=== PATIENT | female | born 1945 | race Caucasian/White ===

== ENCOUNTER → 2017-10-06 | Outpatient (CLI) | payer OTHER, MEDICARE ==
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
== END | disposition home or self-care (01) ==
LOC: PMG 11:03
PROVIDERS: ATTEND Nurse Practitioner Family
DX: M19.011 Primary osteoarthritis, right shoulder (principal); M19.012 Primary osteoarthritis, left shoulder
CPT/HCPCS: 73030

== ENCOUNTER 2017-12-23 17:33 | Inpatient (IN) | payer MEDICARE, OTHER ==
[~2017-12-23] VITALS: Ht 147.3 cm; Wt 59.2 kg
--- NOTE | 2017-12-23 17:47 | EKG ---
[address] [address] Test Date: 2017-12-23 Test Time: 17:39:46 Pat Name: BK COOPER Department: Room: Gender: F Executive Business Coach: DIEGO : 1945 Requested By: JEVON KUNZ Order Number: [id number] Reading MD: Measurements Intervals [place] Rate: 85 P: 50 MS: 216 QRS: 34 QRSD: 76 T: 27 QT: 364 QTc: 439 Interpretive Statements SINUS RHYTHM PROLONGED MS INTERVAL ABNORMAL ECG RI6.01 No previous ECG available for comparison
--- NOTE | 2017-12-23 17:55 | RAD ---
CHEST AP ONLY History: CHEST HEAVINESS, PT HAD RIGHT SIDE ROTATOR CUFF SURGERY THIS MORNING, UNABLE TO REMOVE THE SLING Comparison: None. Findings: Single view of the chest is submitted. There is now elevation of the right hemidiaphragm although subpulmonic effusion not excluded. There is right base atelectasis or infiltrate. Cardiac silhouette is probably unchanged. There is no pneumothorax. Impression: 1. There is now evaluation of the right hemidiaphragm although subpulmonic effusion not excluded. There is right base atelectasis/infiltrate. Component of right lower lobe collapse is a possibility. Electronically signed by: Greg Lopez MD (12/23/2017 5:52 PM) [facility]
[2017-12-23 18:10] LABS: BASO # 0.1 x10^3/uL (0.0-0.2); BASO % 1 % (0-3); EOS % 0 % (0-3); HEMATOCRIT 42.3 % (36.0-47.0); HEMOGLOBIN 14.4 g/dL (12.0-15.5); LYMPH # 1.1 x10^3/uL (1.0-4.8); LYMPH % 10 % (24-48); MEAN CORPUSCULAR HEMOGLOBIN 31 pg (25-35); MEAN CORPUSCULAR HGB CONC 34 g/dL (31-37); MEAN CORPUSCULAR VOLUME 90 fL (79-100); MONO # 0.4 x10^3/uL (0.0-1.1); MONO % 4 % (0-9); NEUT # 9.4 x10^3uL (1.8-7.7); NEUT % 85 % (31-73); PLATELET COUNT 300 x10^3/uL (140-400); RED BLOOD COUNT 4.69 x10^6/uL (3.50-5.40); RED CELL DISTRIBUTION WIDTH 13.2 % (11.5-14.5)
[2017-12-23 18:24] LABS: ALBUMIN 3.8 g/dL (3.4-5.0); ALK PHOS 87 U/L (46-116); ALT (SGPT) 36 U/L (14-59); ANION GAP 11 (6-14); AST (SGOT) 29 U/L (15-37); BLOOD UREA NITROGEN 17 mg/dL (7-20); CALCIUM 9.2 mg/dL (8.5-10.1); CARBON DIOXIDE 25 mmol/L (21-32); CHLORIDE 103 mmol/L (98-107); CREATININE 0.9 mg/dL (0.6-1.0); GFR 61.5; GLUCOSE 126 mg/dL (70-99); LIPASE 241 U/L (73-393); POTASSIUM 4.6 mmol/L (3.5-5.1); SODIUM 139 mmol/L (136-145); TOTAL BILIRUBIN 0.3 mg/dL (0.2-1.0); TOTAL PROTEIN 7.7 g/dL (6.4-8.2)
[2017-12-23 18:25] LABS: DIRECT BILIRUBIN < 0.1 mg/dL (0.0-0.2)
--- NOTE | 2017-12-23 18:28 | PHYS DOC ---
Past History Past Medical History: Diabetes Alcohol Use: None Drug Use: None Adult General Chief Complaint Chief Complaint: POST-OP PROBLEM HPI HPI Patient is a 72 year old female who presents with complaint of chest heaviness. The patient states that she started getting heaviness in her chest at approximately 1500 today. The patient had rotator cuff surgery earlier this morning with Dr. Jo at [facility]. Patient states that she had been recovering well. Patient was having pain in her right shoulder and took hydrocodone shortly prior to onset of symptoms. Patient notes as well that she has been dizzy since sitting up which does improve with lying down. Patient denies history of hypertension, hyperlipidemia. Patient states that she is "prediabetic" but not on medication. Patient denies any history of smoking and denies any family history of coronary artery disease. The patient states currently her symptoms have resolved and she feels much better. The patient had called Dr. Mcallister who was on-call for Dr. Jo, and he instructed the patient come to the emergency department to be evaluated. Review of Systems Review of Systems Constitutional: Denies fever or chills [] Eyes: Denies change in visual acuity, redness, or eye pain [] HENT: Denies nasal congestion or sore throat [] Respiratory: Denies cough or shortness of breath [] Cardiovascular: Chest pressure, denies edema[] GI: Denies abdominal pain, nausea, vomiting, bloody stools or diarrhea [] : Denies dysuria or hematuria [] Musculoskeletal: Right shoulder pain[] Integument: Denies rash or skin lesions [] Neurologic: Denies headache, focal weakness or sensory changes [] All other systems were reviewed and found to be within normal limits, except as documented in this note. Allergies Allergies Allergies Coded Allergies Type Severity Reaction Last Updated Verified codeine Allergy Unknown 12/23/17 Yes morphine Allergy Unknown 12/23/17 Yes Physical Exam Physical Exam Constitutional: Alert, afebrile, no acute distress. [] HENT: Normocephalic, atraumatic, bilateral external ears normal, oropharynx moist, no oral exudates, nose normal. [] Eyes: PERRLA, EOMI, conjunctiva normal, no discharge. [] Neck: Normal range of motion, no tenderness, supple, no stridor. [] Cardiovascular:Heart rate regular rhythm, no murmur [] Lungs & Thorax: Bilateral breath sounds clear to auscultation [] Abdomen: Bowel sounds normal, soft, no tenderness, no masses, no pulsatile masses. [] Skin: Warm, dry, no erythema, no rash. [] Back: No tenderness, no CVA tenderness. [] Extremities: Patient currently in right rotator cuff sling with dressing on right shoulder clean, dry, and intact, no cyanosis, no clubbing, no edema. [] Neurologic: Alert and oriented X 3, normal motor function, normal sensory function, no focal deficits noted. [] Current Patient Data Vital Signs Vital Signs Date Time Temp Pulse Resp B/P (MAP) Pulse Ox O2 Delivery O2 Flow Rate FiO2 12/23/17 17:57 87 18 98 Room Air Lab Results Laboratory Tests Test 12/23/17 17:57 White Blood Count 11.0 x10^3/uL (4.0-11.0) Red Blood Count 4.69 x10^6/uL (3.50-5.40) Hemoglobin 14.4 g/dL (12.0-15.5) Hematocrit 42.3 % (36.0-47.0) Mean Corpuscular Volume 90 fL (79-100) Mean Corpuscular Hemoglobin 31 pg (25-35) Mean Corpuscular Hemoglobin Concent 34 g/dL (31-37) Red Cell Distribution Width 13.2 % (11.5-14.5) Platelet Count 300 x10^3/uL (140-400) Neutrophils (%) (Auto) 85 % (31-73) H Lymphocytes (%) (Auto) 10 % (24-48) L Monocytes (%) (Auto) 4 % (0-9) Eosinophils (%) (Auto) 0 % (0-3) Basophils (%) (Auto) 1 % (0-3) Neutrophils # (Auto) 9.4 x10^3uL (1.8-7.7) H Lymphocytes # (Auto) 1.1 x10^3/uL (1.0-4.8) Monocytes # (Auto) 0.4 x10^3/uL (0.0-1.1) Eosinophils # (Auto) 0.0 x10^3/uL (0.0-0.7) Basophils # (Auto) 0.1 x10^3/uL (0.0-0.2) EKG EKG Interpreted by me: Heart rate 85, sinus rhythm, prolonged [place] interval, normal axis, no acute ST/T-wave abnormalities present[] Radiology/Procedures Radiology/Procedures [address] [address] IMAGING REPORT Signed PATIENT: BK COOPER ACCOUNT: [id number] : 1945 LOCATION: ER AGE: 72 SEX: F EXAM STATUS: REG ER ORD. PHYSICIAN: JEVON KUNZ MD REASON: chest pain PROCEDURE: CHEST AP ONLY CHEST AP ONLY History: CHEST HEAVINESS, PT HAD RIGHT SIDE ROTATOR CUFF SURGERY THIS MORNING, UNABLE TO REMOVE THE SLING Comparison: None. Findings: Single view of the chest is submitted. There is now elevation of the right hemidiaphragm although subpulmonic effusion not excluded. There is right base atelectasis or infiltrate. Cardiac silhouette is probably unchanged. There is no pneumothorax. Impression: 1. There is now evaluation of the right hemidiaphragm although subpulmonic effusion not excluded. There is right base atelectasis/infiltrate. Component of right lower lobe collapse is a possibility. Electronically signed by: Lissette Hogan MD (12/23/2017 5:52 PM) [facility] DICTATED AND SIGNED BY: LISSETTE HOGAN MD DATE: 12/23/171750 CC: JEVON KUNZ MD; SUSANNAH MALLOY PA ~ [address] [address] IMAGING REPORT Signed PATIENT: BK COOPER ACCOUNT: [id number] : 1945 LOCATION: ER AGE: 72 SEX: F EXAM STATUS: REG ER ORD. PHYSICIAN: ZAY PHILLIPS MD REASON: repeat to confirm initial findings of elevated hemidiaphragm PROCEDURE: PORTABLE CHEST 1V PORTABLE CHEST 1V History: Elevated hemidiaphragm Comparison: Exam the same day Findings: Single view of the chest is submitted. There is again apparent elevation right hemidiaphragm although subpulmonic effusion difficult to exclude. There is again some opacity right lung base. Findings were not present on 2006 radiograph. No pneumothorax identified. Heart size is stable. Impression: 1. As seen on exam earlier the same day, there is elevation of the right hemidiaphragm, subpulmonic effusion not excluded. There is also some opacity at the medial right lung base. Electronically signed by: Lissette Hogan MD (12/23/2017 7:33 PM) [facility] DICTATED AND SIGNED BY: LISSETTE HOGAN MD DATE: 12/23/171930 CC: ZAY PHILLIPS MD; SUSANNAH [place] ~ [place] [address] IMAGING REPORT Signed PATIENT: BK COOPER ACCOUNT: [id number] : 1945 LOCATION: ER AGE: 72 SEX: F EXAM STATUS: REG ER ORD. PHYSICIAN: ZAY PHILLIPS MD REASON: left flank pain PROCEDURE: CT ABD PELV W/ IV CONTRST ONLY CT abdomen and pelvis with contrast History: Left flank and abdominal pain, rotator cuff repair this a.m. Technique: After the administration of intravenous contrast, CT imaging was performed of the abdomen and pelvis. No oral contrast was given as per request. Multiplanar images are reviewed. Exposure: One or more of the following individualized dose reduction techniques were utilized for this examination: 1. Automated exposure control 2. Adjustment of the mA and/or kV according to patient size 3. Use of iterative reconstruction technique. Contrast: 75 cc Omnipaque 300 Comparison: March 10, 2008 Findings: There is some motion. There is fairly prominent infiltrate of visualized right lower lobe near the lung base. There are some small foci of gas in the visualized right anterior chest wall probably related to recent surgery. There is no significant abnormality of the liver, spleen, pancreas, adrenal glands. Both kidneys enhance, mild pelviectasis. Gallbladder is present without obvious intraluminal abnormality by CT. There is elevation right hemidiaphragm. Accurate evaluation of bowel is limited without oral contrast. There is no significant inflammatory change adjacent to the bowel. There is no evidence of bowel obstruction, free fluid, or free air. Appendix cannot be confidently identified if still present. There is mild sigmoid diverticulosis. There is again calcified uterine mass likely due to fibroid. There is possible right adnexal cyst about 2 cm although somewhat complex density characteristics 27 Hounsfield units. There is some calcified plaque abdominal aorta, normal caliber. There are areas of more prominent demineralization of the sacrum bilaterally greater on the right. Impression: 1. There is prominent infiltrate of the right lower lobe at the lung base. There is elevation right hemidiaphragm. 2. There is mild colonic diverticulosis. Appendix is not confidently identified if still present. 3. There is calcified uterine mass likely due to fibroid. There may be a somewhat complex right adnexal cyst for which nonemergent ultrasound evaluation may be beneficial given patient's age, not clearly seen on previous 2008 exam. 4. There are areas of more prominent demineralization of the sacrum bilaterally greater on the right. Electronically signed by: Lissette Hogan MD (12/23/2017 8:42 PM) [facility] DICTATED AND SIGNED BY: LISSETTE HOGAN MD DATE: 12/23/172033 CC: ZAY PHILLIPS MD; SUSANNAH MALLOY ~ [] Course & Med Decision Making Course & Med Decision Making Pertinent Labs and Imaging studies reviewed. (See chart for details) The patient was treated with IV fentanyl for pain in the emergency department. Serial troponins showed no elevation. Despite treatment, the patient is developing severe left-sided flank pain. CT imaging does not reveal any acute pathology to account for the flank pain. The CT did note an infiltrate in the right lower lobe, however given the patient has no fever, leukocytosis, or cough , I do not feel that this is a true pneumonia but is likely due to the elevated hemidiaphragm from the patient's anesthetic block prior to surgery. Antibiotics are deferred at this time. I spoke with Dr. Mcallister who is on-call for Dr. Jo. He stated from an orthopedic standpoint they did not feel the patient needed close monitoring her follow-up for her surgery but he does share concern for the patient's pain issues and stated that the patient would be appropriate for admission here at [facility]. I spoke with Dr. Jordan who accepted care patient in hospital. Hunter Disclaimer Dragon Disclaimer This electronic medical record was generated, in whole or in part, using a voice recognition dictation system. Departure Departure: Impression: Primary Impression: Chest pain Additional Impression: Postoperative pain Disposition: 09 ADMITTED INPATIENT Admitting Physician: Beverly Jordan Condition: STABLE Referrals: SUSANNAH MALLOY (PCP) Problem Qualifiers Primary Impression: Chest pain Chest pain type: unspecified Qualified Codes: R07.9 - Chest pain, unspecified ZAY PHILLIPS MD December 23, 2017 18:27
--- NOTE | 2017-12-23 19:37 | RAD ---
PORTABLE CHEST 1V History: Elevated hemidiaphragm Comparison: Exam the same day Findings: Single view of the chest is submitted. There is again apparent elevation right hemidiaphragm although subpulmonic effusion difficult to exclude. There is again some opacity right lung base. Findings were not present on 2007 radiograph. No pneumothorax identified. Heart size is stable. Impression: 1. As seen on exam earlier the same day, there is elevation of the right hemidiaphragm, subpulmonic effusion not excluded. There is also some opacity at the medial right lung base. Electronically signed by: Greg Lopez MD (12/23/2017 7:33 PM) [facility]
--- NOTE | 2017-12-23 19:44 | EKG ---
[address] [address] Test Date: 2017-12-23 Test Time: 19:22:36 Pat Name: BK COOPER Department: Room: Gender: F Big Data Developer: KOBI : 1945 Requested By: ZAY PHILLIPS Order Number: [id number] Reading MD: Measurements Intervals [place] Rate: 91 P: 55 TX: 210 QRS: 44 QRSD: 74 T: 55 QT: 358 QTc: 448 Interpretive Statements SINUS RHYTHM PROLONGED [place] INTERVAL ABNORMAL ECG RI6.01 No previous ECG available for comparison
[2017-12-23] MEDS ORDERED: LORazepam 2 MG/ML VIAL ONE (19:50)
[2017-12-23] MEDS ORDERED: LORazepam 2 MG/ML VIAL IV ONE (20:00)
[2017-12-23] MEDS ORDERED: CONTRAST GIVEN MC PRN (20:15)
[2017-12-23] MEDS ORDERED: IOHEXOL 300 MG/ML 75 ML VIAL. IV ONE (20:15)
--- NOTE | 2017-12-23 20:45 | RAD ---
CT abdomen and pelvis with contrast History: Left flank and abdominal pain, rotator cuff repair this a.m. Technique: After the administration of intravenous contrast, CT imaging was performed of the abdomen and pelvis. No oral contrast was given as per request. Multiplanar images are reviewed. Exposure: One or more of the following individualized dose reduction techniques were utilized for this examination: 1. Automated exposure control 2. Adjustment of the mA and/or kV according to patient size 3. Use of iterative reconstruction technique. Contrast: 75 cc Omnipaque 300 Comparison: March 10, 2008 Findings: There is some motion. There is fairly prominent infiltrate of visualized right lower lobe near the lung base. There are some small foci of gas in the visualized right anterior chest wall probably related to recent surgery. There is no significant abnormality of the liver, spleen, pancreas, adrenal glands. Both kidneys enhance, mild pelviectasis. Gallbladder is present without obvious intraluminal abnormality by CT. There is elevation right hemidiaphragm. Accurate evaluation of bowel is limited without oral contrast. There is no significant inflammatory change adjacent to the bowel. There is no evidence of bowel obstruction, free fluid, or free air. Appendix cannot be confidently identified if still present. There is mild sigmoid diverticulosis. There is again calcified uterine mass likely due to fibroid. There is possible right adnexal cyst about 2 cm although somewhat complex density characteristics 27 Hounsfield units. There is some calcified plaque abdominal aorta, normal caliber. There are areas of more prominent demineralization of the sacrum bilaterally greater on the right. Impression: 1. There is prominent infiltrate of the right lower lobe at the lung base. There is elevation right hemidiaphragm. 2. There is mild colonic diverticulosis. Appendix is not confidently identified if still present. 3. There is calcified uterine mass likely due to fibroid. There may be a somewhat complex right adnexal cyst for which nonemergent ultrasound evaluation may be beneficial given patient's age, not clearly seen on previous 2008 exam. 4. There are areas of more prominent demineralization of the sacrum bilaterally greater on the right. Electronically signed by: Greg Lopez MD (12/23/2017 8:42 PM) [facility]
[2017-12-23] MEDS ORDERED: ONDANSETRON PF 4 MG/2 ML VIAL. IV PRN (21:15)
[2017-12-23] MEDS ORDERED: ACETAMINOPHEN 325 MG TABLET PO PRN (21:15)
[2017-12-23] MEDS ORDERED: KETOROLAC 30 MG/ML VIAL. IV ONE (21:30)
[2017-12-23] MEDS ORDERED: ONDANSETRON ODT 4 MG TAB.RAPDIS PO PRN (22:00)
[2017-12-23] MEDS: IV NORMAL SALINE 1,000ML 1,000 ML IV SCH (22:01)
[2017-12-23 22:14] VITALS: BP 169/79
[2017-12-23] MEDS ORDERED: ZOLP10TA4 PO (23:11)
[2017-12-23] MEDS ORDERED: PSEU120T9 PO (23:11)
[2017-12-23] MEDS ORDERED: AMMONIUM LACTATE 12% TOPICAL LOTION 226GM BOTTLE. TP PRN (23:30)
[2017-12-23] MEDS ORDERED: LORA10TA3 PO (23:34)
[2017-12-23] MEDS ORDERED: OMEP20CA9 PO (23:34)
[2017-12-23] MEDS ORDERED: METF500T9 PO (23:34)
[2017-12-23] MEDS ORDERED: CARV12.52 PO (23:34)
[2017-12-23] MEDS ORDERED: AMMO57LO TOP (23:34)
[2017-12-23] MEDS ORDERED: METH5TAB6 PO (23:34)
[2017-12-23] MEDS ORDERED: HYDR12.53 PO (23:34)
[2017-12-23] MEDS ORDERED: ZOLPIDEM 5 MG TABLET. PO PRN (23:45)
[2017-12-23] MEDS ORDERED: ZOLPIDEM 5 MG TABLET. PO SCH (23:45)
[2017-12-23] MEDS ORDERED: PSEUDOEPHEDRINE ER 120 MG TABLET.ER. PO PRN (23:45)
[2017-12-24 03:59] LABS: CALCIUM 8.3 mg/dL (8.5-10.1); CREATININE 1.1 mg/dL (0.6-1.0); GFR 48.8; POTASSIUM 3.9 mmol/L (3.5-5.1)
[2017-12-24 04:24] LABS: BASO % 0 % (0-3); EOS % 0 % (0-3); HEMATOCRIT 35.7 % (36.0-47.0); LYMPH # 2.4 x10^3/uL (1.0-4.8); LYMPH % 21 % (24-48); MEAN CORPUSCULAR HEMOGLOBIN 31 pg (25-35); MEAN CORPUSCULAR HGB CONC 34 g/dL (31-37); MEAN CORPUSCULAR VOLUME 91 fL (79-100); MONO % 9 % (0-9); NEUT # 7.8 x10^3uL (1.8-7.7); NEUT % 69 % (31-73); PLATELET COUNT 246 x10^3/uL (140-400); RED BLOOD COUNT 3.92 x10^6/uL (3.50-5.40); WHITE BLOOD COUNT 11.3 x10^3/uL (4.0-11.0)
[2017-12-24 05:20] VITALS: BP 121/64
[2017-12-24] MEDS ORDERED: PANTOPRAZOLE 40 MG TABLET. PO SCH (07:30)
[2017-12-24] MEDS: IV NORMAL SALINE 1,000ML 1,000 ML IV SCH (07:51)
[2017-12-24] MEDS ORDERED: CARVEDILOL 12.5 MG TABLET PO SCH (08:00)
[2017-12-24] MEDS ORDERED: hydroCHLOROthiazide 12.5 MG CAPSULE PO SCH (09:00)
[2017-12-24] MEDS ORDERED: CETIRIZINE HCL 10 MG TABLET PO SCH (09:00)
--- NOTE | 2017-12-24 09:15 | PDOC2 ---
CONSULT Date of Admission DATE: 12/24/17 TIME: 09:10 Reason for Consult: chest pain Problem List Problems Medical Problems: (1) Chest pain Status: Acute (2) Postoperative pain Status: Acute History of Present Illness Ms Crawford is a 72 year old female who presented with complaints of chest pain. She apparently underwent rotator cuff repair yesterday am. She was home and took a pain pill last yadi. About 2 hours later she began to have complaints of chest tightness. She denies any change with exertion or position changes. She does report increase with deep inspiration. She reports pain lasted several hours so she came for evaluation. She was noted to have a right lower lobe infiltrate by CT but no fever or leukocytosis. She reports pain has been gone since in ED. She does report that her right shoulder continues to be numb and down across her chest to a lesser extent. She denies any prior symptoms of chest discomfort, dyspnea, palpitaitons, congestive symptoms, lightheadedness or syncope. She denies any limitations in functional capacity prior to surgery. Past Medical History gerd, hypothyroid, borderline diabetes, gallstones and pancreatitis, hypertension, diverticulosis, fibroids, headaches, arthritis Past Surgical History shoulder surgery yesterday Past Surgical History: Cataract Removal, Family History non contributory Social History non smoker, no ETOH or illicit drug use Current Medications Current Medications Fentanyl Citrate (Fentanyl 2ml Vial) 50 mcg 1X ONCE IV Last administered on at 19:45; Start 12/23/17 at 19:45; Stop 12/23/17 at 19:46; Status DC Lorazepam (Ativan) 1 mg 1X ONCE IV Last administered on 12/23/17at 19:57; Start 12/23/17 at 20:00; Stop 12/23/17 at 20:01; Status DC Lorazepam (Ativan) 2 mg STK-MED ONCE .ROUTE ; Start 12/23/17 at 19:50; Stop at 19:51; Status DC Iohexol (Omnipaque 300 Mg/ml) 75 ml 1X ONCE IV Last administered on 12/23/17at 20:10; Start 12/23/17 at 20:15; Stop 12/23/17 at 20:16; Status DC Info (Do NOT chart on this entry -- for MONITORING) 1 each PRN DAILY PRN MC SEE COMMENTS; Start 12/23/17 at 20:15; Stop 12/25/17 at 20:14 Fentanyl Citrate (Fentanyl 2ml Vial) 50 mcg 1X ONCE IV Last administered on at 20:31; Start 12/23/17 at 20:30; Stop 12/23/17 at 20:45; Status DC Ketorolac Tromethamine (Toradol) 30 mg 1X ONCE IV Last administered on at 22:00; Start 12/23/17 at 21:30; Stop 12/23/17 at 21:32; Status DC Ondansetron HCl (Zofran) 4 mg PRN Q4HRS PRN IV NAUSEA/VOMITING; Start 12/23/17 at 21:15; Stop 12/24/17 at 21:14 Fentanyl Citrate (Fentanyl 2ml Vial) 50 mcg PRN Q2HR PRN IV PAIN; Start at 21:15; Stop 12/24/17 at 21:14 Sodium Chloride 1,000 ml @ 100 mls/hr Q10H IV Last administered on 12/24/17at 07:51; Start 12/23/17 at 21:14; Stop 12/24/17 at 21:13 Acetaminophen (Tylenol) 650 mg PRN Q4HRS PRN PO FEVER; Start 12/23/17 at 21:15 ; Stop 12/24/17 at 21:14 Ondansetron HCl (Zofran Odt) 4 mg PRN Q4HRS PRN PO NAUSEA/VOMITING; Start 12/23 at 22:00 Pseudoephedrine HCl (Sudafed 12-Hour) 120 mg PRN QHS PRN PO DECONGESTANT Last administered on 12/23/17at 23:42; Start 12/23/17 at 23:45 Zolpidem Tartrate (Ambien) 5 mg HS PO Last administered on 12/23/17at 23:42; Start 12/23/17 at 23:45 Lactic Acid (Lac-Hydrin) 1 julee PRN DAILY PRN TP Dry Skin; Start 12/23/17 at 23: 30 Carvedilol (Coreg) 12.5 mg DAILYWBKFT PO Last administered on 12/24/17at 08:24; Start 12/24/17 at 08:00 Hydrochlorothiazide (Microzide) 12.5 mg DAILY PO Last administered on at 08:24; Start 12/24/17 at 09:00 Cetirizine HCl (ZyrTEC) 10 mg DAILY PO Last administered on 12/24/17at 08:24; Start 12/24/17 at 09:00 Metformin HCl (Glucophage Xr) 500 mg DAILYWLUN PO ; Start 12/25/17 at 12:00 Methimazole (Tapazole) 5 mg DAILY PO Last administered on 12/24/17at 08:24; Start 12/24/17 at 09:00 Pantoprazole Sodium (Protonix) 40 mg DAILYAC PO Last administered on 12/24/17at 08:24; Start 12/24/17 at 07:30 Zolpidem Tartrate (Ambien) 5 mg PRN QHS PRN PO INSOMNIA; Start 12/23/17 at 23: 45 Active Scripts Active Reported Omeprazole 20 Mg Capsule.dr 20 Mg PO DAILY LAST DOSE GIVEN: DATE: TIME: NEXT DOSE DUE: DATE: TIME: Carvedilol 12.5 Mg Tablet 12.5 Mg PO DAILY LAST DOSE GIVEN: DATE: TIME: NEXT DOSE DUE: DATE: TIME: Methimazole 5 Mg Tablet 5 Mg PO DAILY LAST DOSE GIVEN: DATE: TIME: NEXT DOSE DUE: DATE: TIME: Amlactin (Ammonium Lactate) 57 Gm Lotion 1 Julee TOP PRN PRN LAST DOSE GIVEN: DATE: TIME: NEXT DOSE DUE: DATE: TIME: Loratadine 10 Mg Tablet 10 Mg PO DAILY LAST DOSE GIVEN: DATE: TIME: NEXT DOSE DUE: DATE: TIME: Metformin Hcl Er (Metformin Hcl) 500 Mg Tab.er.24h 500 Mg PO DAILY LAST DOSE GIVEN: DATE: TIME: NEXT DOSE DUE: DATE: TIME: Hydrochlorothiazide Capsule (Hydrochlorothiazide) 12.5 Mg Capsule 12.5 Mg PO DAILY LAST DOSE GIVEN: DATE: TIME: NEXT DOSE DUE: DATE: TIME: Sudafed 12-Hour (Pseudoephedrine Hcl) 120 Mg Tablet.er 120 Mg PO HS PRN LAST DOSE GIVEN: DATE: TIME: NEXT DOSE DUE: DATE: TIME: Zolpidem Tartrate 10 Mg Tablet 10 Mg PO HS LAST DOSE GIVEN: DATE: TIME: NEXT DOSE DUE: DATE: TIME: Allergies: Coded Allergies: codeine (Verified Allergy, Unknown, 12/23/17) morphine (Verified Allergy, Unknown, 12/23/17) Review of System as per HPI or negative General: Alert, Oriented X3, Cooperative, No acute distress HEENT: Atraumatic, EOMI Lungs: Other (right basilar crackles, otherwise ) Heart: Regular rate, Normal S1, Normal S2 Abdomen: Normal bowel sounds, Soft Extremities: No cyanosis, No edema, Normal pulses, Other (right upper extremity in immobelizer) Neuro: Normal speech, Cranial nerves 3-12 NL Psych/Mental Status: Mental status NL, Mood NL VITALS Vital Signs Date Time Temp Pulse Resp B/P (MAP) Pulse Ox O2 Delivery O2 Flow Rate FiO2 12/24/17 08:24 79 121/64 12/24/17 05:20 98.0 18 95 Room Air Labs Laboratory Tests Test 12/23/17 17:57 12/23/17 19:10 12/24/17 03:15 White Blood Count 11.0 x10^3/uL (4.0-11.0) 11.3 x10^3/uL (4.0-11.0) Red Blood Count 4.69 x10^6/uL (3.50-5.40) 3.92 x10^6/uL (3.50-5.40) Hemoglobin 14.4 g/dL (12.0-15.5) 12.0 g/dL (12.0-15.5) Hematocrit 42.3 % (36.0-47.0) 35.7 % (36.0-47.0) Mean Corpuscular Volume 90 fL (79-100) 91 fL (79-100) Mean Corpuscular Hemoglobin 31 pg (25-35) 31 pg (25-35) Mean Corpuscular Hemoglobin Concent 34 g/dL (31-37) 34 g/dL (31-37) Red Cell Distribution Width 13.2 % (11.5-14.5) 13.0 % (11.5-14.5) Platelet Count 300 x10^3/uL (140-400) 246 x10^3/uL (140-400) Neutrophils (%) (Auto) 85 % (31-73) 69 % (31-73) Lymphocytes (%) (Auto) 10 % (24-48) 21 % (24-48) Monocytes (%) (Auto) 4 % (0-9) 9 % (0-9) Eosinophils (%) (Auto) 0 % (0-3) 0 % (0-3) Basophils (%) (Auto) 1 % (0-3) 0 % (0-3) Neutrophils # (Auto) 9.4 x10^3uL (1.8-7.7) 7.8 x10^3uL (1.8-7.7) Lymphocytes # (Auto) 1.1 x10^3/uL (1.0-4.8) 2.4 x10^3/uL (1.0-4.8) Monocytes # (Auto) 0.4 x10^3/uL (0.0-1.1) 1.0 x10^3/uL (0.0-1.1) Eosinophils # (Auto) 0.0 x10^3/uL (0.0-0.7) 0.0 x10^3/uL (0.0-0.7) Basophils # (Auto) 0.1 x10^3/uL (0.0-0.2) 0.0 x10^3/uL (0.0-0.2) Sodium Level 139 mmol/L (136-145) 140 mmol/L (136-145) Potassium Level 4.6 mmol/L (3.5-5.1) 3.9 mmol/L (3.5-5.1) Chloride Level 103 mmol/L (98-107) 105 mmol/L (98-107) Carbon Dioxide Level 25 mmol/L (21-32) 26 mmol/L (21-32) Anion Gap 11 (6-14) 9 (6-14) Blood Urea Nitrogen 17 mg/dL (7-20) 19 mg/dL (7-20) Creatinine 0.9 mg/dL (0.6-1.0) 1.1 mg/dL (0.6-1.0) Estimated GFR (Cockcroft-Gault) 61.5 48.8 Glucose Level 126 mg/dL (70-99) 112 mg/dL (70-99) Calcium Level 9.2 mg/dL (8.5-10.1) 8.3 mg/dL (8.5-10.1) Total Bilirubin 0.3 mg/dL (0.2-1.0) Direct Bilirubin < 0.1 mg/dL (0.0-0.2) Aspartate Amino Transf (AST/SGOT) 29 U/L (15-37) Alanine Aminotransferase (ALT/SGPT) 36 U/L (14-59) Alkaline Phosphatase 87 U/L (46-116) Troponin I Quantitative < 0.017 ng/mL (0-0.055) < 0.017 ng/mL (0-0.055) < 0.017 ng/mL (0-0.055) Total Protein 7.7 g/dL (6.4-8.2) Albumin 3.8 g/dL (3.4-5.0) Lipase 241 U/L (73-393) Images EKG - sinus rhythm, 1st degree AVB, no acute abnormalities CXR - Impression: 1. As seen on exam earlier the same day, there is elevation of the right hemidiaphragm, subpulmonic effusion not excluded. There is also some opacity at the medial right lung base. CT Impression: 1. There is prominent infiltrate of the right lower lobe at the lung base. There is elevation right hemidiaphragm. 2. There is mild colonic diverticulosis. Appendix is not confidently identified if still present. 3. There is calcified uterine mass likely due to fibroid. There may be a somewhat complex right adnexal cyst for which nonemergent ultrasound evaluation may be beneficial given patient's age, not clearly seen on previous 2007 exam. 4. There are areas of more prominent demineralization of the sacrum bilaterally greater on the right. Assessment/Plan 1. Chest pain, atypical - likely multifactorial. Raciel negative. EKG normal. Check echo for LV function and wall motion. If normal would recommend follow up in a month and re-eval for possible outpatient stress test. 2. RUL infiltrate - per PCP 3. hypertension - controlled 4. unknown lipids, - check FLP 5. s/p rotator cuff sx - as per post op instructions LORY GUERRERO APPOINTMENT MANAGER December 24, 2017 09:15
[2017-12-24 11:18] VITALS: BP 97/59
[2017-12-24] MEDS ORDERED: IBUP800T19 PO (15:31)
--- NOTE | 2017-12-24 16:19 | SSS ---
ADMIT DATE: 12/24/2017 HISTORY OF PRESENT ILLNESS: The patient is a 72-year-old female patient who came to the Emergency Room complaining of chest heaviness. She stated that she started getting heaviness in her chest at approximately 1500 in the afternoon yesterday. The patient had rotator cuff surgery earlier in the morning with Dr. Jo at [facility]. The patient states that she has been recovering well. She was having pain in her right shoulder and took hydrocodone shortly prior to onset of symptoms. The patient notes as well that she has been dizzy since sitting up, which does improve with lying down. She denied any history of hypertension, hyperlipidemia and she said that she is prediabetic, but not on medication. Apparently, the patient has called Dr. Mcallister who was television repairman for Dr. Jo and he instructed the patient to come to the Emergency Department to be evaluated. She was admitted overnight. She has 3 sets of cardiac enzymes that were negative with troponin to be less than 0.017. She apparently is allergic to CODEINE and MORPHINE and she has taken hydrocodone and it caused chest heaviness and was not willing to take any narcotic and a decision was made for her to use ibuprofen 600-800 mg 3 times a day with meals. PAST MEDICAL HISTORY: Significant for hypertension, Graves' disease, and type 2 diabetes. PAST SURGICAL HISTORY: Significant for recent rotator cuff surgery. ALLERGIES: She is allergic to CODEINE and MORPHINE. MEDICATIONS: She is currently on following medications: She is on loratadine 10 mg once a day, pseudoephedrine 120 mg at bedtime, carvedilol 12.5 mg twice a day, Ambien 10 mg at bedtime, hydrochlorothiazide 12.5 mg daily, omeprazole 20 mg once a day, metformin 500 mg daily, methimazole 5 mg daily, ammonium lactate for AmLactin applied topically twice a day for dry skin. FAMILY HISTORY: She has 1 sister and 1 brother, older. Her father at age of 98 and mother at age of 67. SOCIAL HISTORY: She is , has 2 daughters. She does not smoke or drink alcohol. 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 REVIEW OF SYSTEMS: Unremarkable. PHYSICAL EXAMINATION: GENERAL: When I examined her, she was sitting in the edge of the bed comfortably, in no apparent respiratory distress, somewhat pale, but no jaundice, cyanosis, or thyromegaly. No jugular venous distension. No lower limb edema. VITAL SIGNS: Her heart rate was 69, blood pressure was 97/59, temperature 98.5, respiratory rate was 18 and oxygen saturation was 95% on room air. HEAD, EYES, EARS, NOSE and THROAT: Showed normocephalic, atraumatic. NECK: Supple. HEART: Showed normal first and second heart sounds. No gallop, rub or murmur. CHEST: Clear to auscultation. No crepitation or rhonchi. ABDOMEN: Distended, soft, nontender. NEUROLOGIC: She is awake, alert, responding appropriately. Cranial nerves intact. EXTREMITIES: She moves her left upper and both lower extremities without difficulty. Her right upper extremity is in a shoulder immobilizer. LABORATORY DATA: Showed a white cell count of 11,000, hemoglobin 12, hematocrit 36, MCV 91, and platelet count 246,000. Her chemistry showed a serum sodium 140, potassium 3.9, chloride 105, bicarbonate 26, anion gap of 9, BUN 19, creatinine 1.1, estimated GFR was 49 mL per minute. Her glucose 112, calcium was 8.3. She has 3 sets of cardiac enzymes showed troponin to be less than 0.017. Her fasting lipid profile showed that her serum triglycerides 133, total cholesterol 210, LDL was 128, VLDL was 46, and HDL cholesterol was 36 and the ratio was 5. ASSESSMENT AND PLAN: She was discharged home to continue on ibuprofen 600-800 mg 3 times a day with meals, ammonium lactate for AmLactin apply topically twice a day for dry skin, hydrochlorothiazide 12.5 mg once a day, loratadine 10 mg once a day, metformin 500 mg once a day, methimazole 5 mg daily, omeprazole 20 mg once a day, pseudoephedrine 120 mg at bedtime and Ambien 10 mg at bedtime. FINAL DISCHARGE DIAGNOSIS: Right rotator cuff tear repair; severe chest heaviness, felt to be secondary to pain medication. The patient has had 3 sets of cardiac enzymes that ruled out myocardial infarction. She has also hypertension, according to her prediabetes and Graves' disease as well as gastroesophageal reflux disease. YAYO RECIO MD DR: GINGER/sukhdeep JOB#: [id number] / [id number]
--- NOTE | 2017-12-24 16:37 | CARD ---
MR#: [id number] Date of Study: 12/24/2017 Ordering Physician: LORY GUERRERO, Referring Physician: YAYO RECIO, Tech: NAVIN Paige APPROVED REPORT EXAM: Two-dimensional and M-mode echocardiogram with Doppler and color Doppler. Other Information Quality : Average INDICATION Chest pressure 2D DIMENSIONS Left Atrium(2D)3.3 (1.6-4.0cm)IVSd1.1 (0.7-1.1cm) Aortic Root(2D)2.1 (2.0-3.7cm)LVDd4.1 (3.9-5.9cm) LVOT Diameter1.3 (1.8-2.4cm)PWd1.0 (0.7-1.1cm) LVDs2.7 (2.5-4.0cm)FS (%) 28.0 % LVEF(%)57.0 (>50%) Aortic Valve AoV Peak Austin.130.1cm/Ming Peak GR.6.8mmHg LVOT Peak Austin.105.0cm/s Mitral Valve MV E Afslawup616.2cm/sMV DECEL [id number] MV A Rgdtzbwk77.3cm/sE/A Ratio1.2 Tricuspid Valve TR P. Jheosgem046fc/sRAP [id number] TR Peak Gr.[id number] LEFT VENTRICLE The left ventricle is normal size. There is normal left ventricular wall thickness. The left ventricu lar systolic function is normal. The Ejection Fraction is 55-60%. There is normal LV segmental wall m otion. RIGHT VENTRICLE The right ventricle is normal size. There is normal right ventricular wall thickness. The right ventr icular systolic function is normal. ATRIA The left atrium size is normal. The right atrium size is normal. The interatrial septum is intact wit h no evidence for an atrial septal defect or patent foramen ovale as noted on 2-D or Doppler imaging. AORTIC VALVE The aortic valve is trileaflet. The aortic valve is mildly sclerotic. Doppler and Color Flow revealed trace aortic regurgitation. There is no significant aortic valvular stenosis. MITRAL VALVE There is no evidence of mitral valve prolapse. There is no mitral valve stenosis. Doppler and Color-f low revealed mild mitral regurgitation. TRICUSPID VALVE Doppler and Color Flow revealed trace to mild tricuspid regurgitation. There is no tricuspid valve st enosis. PULMONIC VALVE The pulmonic valve is not well visualized. Doppler and Color Flow revealed trace pulmonic valvular re gurgitation. There is no pulmonic valvular stenosis. GREAT VESSELS The aortic root is normal in size. The IVC is normal in size and collapses >50% with inspiration. PERICARDIAL EFFUSION There is no pleural effusion. There is no evidence of significant pericardial effusion. Critical Notification Critical Value: No <Conclusion> The left ventricular systolic function is normal. The Ejection Fraction is 55-60%. Mild mitral regurgitation. Trace to mild tricuspid regurgitation. There is no evidence of significant pericardial effusion. Signed by : Alvaro Bernard, Electronically Approved : 12/24/2017 16:36:19
[2017-12-25] MEDS ORDERED: metFORMIN XR 500 MG TAB.ER.24H PO SCH (12:00)
== END 2017-12-24 16:06 | disposition home or self-care (01) | DRG 313 ==
LOC: ER 17:33 → 1 SOUTH 20:58
PROVIDERS: ADMIT Internal Medicine; ATTEND Internal Medicine
DX: R07.89 Other chest pain (principal); E05.00 Thyrotoxicosis with diffuse goiter without thyrotoxic crisis or storm; E11.9 Type 2 diabetes mellitus without complications; G89.18 Other acute postprocedural pain; M19.90 Unspecified osteoarthritis, unspecified site; T40.2X5A Adverse effect of other opioids, initial encounter; M25.511 Pain in right shoulder; K21.9 Gastro-esophageal reflux disease without esophagitis; I10 Essential (primary) hypertension; K57.30 Diverticulosis of large intestine without perforation or abscess without bleeding; Z79.84 Long term (current) use of oral hypoglycemic drugs; Z79.899 Other long term (current) drug therapy; Z88.5 Allergy status to narcotic agent; Y92.89 Other specified places as the place of occurrence of the external cause
CPT/HCPCS: 36415; 71045; 74177; 80048; 80061; 80076; 83690; 84484; 85025; 93005; 93306; 96374; 96375; 96376; J1885; J2060; J3010; Q9967; 99285-25; J7030

== ENCOUNTER → 2018-02-23 | Outpatient (CLI) | payer MEDICARE, OTHER ==
[~2018-02-23] MED LIST: AMMO57LO TOP; CARV12.52 PO; HYDR12.53 PO; IBUP800T19 PO; LORA10TA3 PO; METF500T9 PO; METH5TAB6 PO; OMEP20CA9 PO; PSEU120T9 PO; ZOLP10TA4 PO
--- NOTE | 2018-02-23 13:59 | RAD ---
Clinical Indication: Postmenopausal screening Technique: Bone Densitometry was performed with dual photon absorption of the lumbar spine and proximal right femur. Comparison is from July 03, 2009. Findings: Lumbar Spine: Bone density is 1.090 g/cm2 for L1-L4. T-Score is -0.8 and Z-score 1.5. Age-matched percentage is 121 %. Right Femur neck: Bone density is 0.766 g/cm2. T-Score is -2.0 and Z-score 0.2. Age-matched percentage is 104 %. Spine bone mineral density has increased by 14.3 percent from prior, may be related to sclerosis and artifactual rather than true increase in bone marrow density. Hip bone marrow density has increased by 29.6 percent from prior . Impression: 1. Osteopenia in the right femur 2. Normal bone mineral density in the spine. Electronically signed by: Arsalan Alexis MD (02/23/2018 1:55 PM) [facility]
--- NOTE | 2018-02-24 13:24 | RAD ---
DATE: February 23, 2018 EXAM: DIGITAL SCREEN BILAT W/CAD HISTORY: Routine screening. COMPARISON: Outside priors reported as no longer available, new baseline TECHNIQUE: 2D digital CC and MLO views of each breast were obtained. This study was interpreted with the benefit of Computerized Aided Detection (CAD). FINDINGS: The breast parenchyma is heterogeneously dense, category C, which may obscure small masses. There is no worrisome mass or area of architectural distortion. There are no suspicious groupings of microcalcifications. There are a few benign-appearing calcifications. There are benign-appearing axillary lymph nodes. IMPRESSION: Benign findings. BI-RADS CATEGORY: 2 BENIGN FINDING RECOMMENDED FOLLOW-UP: 12M 12 MONTH FOLLOW-UP PQRS compliance statement: Patient information was entered into a reminder system with a target due date for the next mammogram. Mammography is a sensitive method for finding small breast cancers, but it does not detect them all and is not a substitute for careful clinical examination. A negative mammogram does not negate a clinically suspicious finding and should not result in delay in biopsying a clinically suspicious abnormality. "Our facility is accredited by the [employer] Mammography Program."
== END | disposition home or self-care (01) ==
LOC: DXRAD 10:09
PROVIDERS: ATTEND Physician Assistant Medical
DX: Z12.31 Encounter for screening mammogram for malignant neoplasm of breast (principal); Z13.820 Encounter for screening for osteoporosis; M85.88 Other specified disorders of bone density and structure, other site; I10 Essential (primary) hypertension; E11.9 Type 2 diabetes mellitus without complications; K21.9 Gastro-esophageal reflux disease without esophagitis; Z78.0 Asymptomatic menopausal state
CPT/HCPCS: 77067; 77080

== ENCOUNTER 2018-07-22 20:35 | Emergency (ER) | payer MEDICARE, OTHER ==
[~2018-07-22] VITALS: Ht 149.9 cm; Wt 59.0 kg
[~2018-07-22 20:35] MED LIST changes: -CARV12.52 PO; +CARV12.547 PO; -HYDR12.53 PO; +HYDR12.572 PO
--- NOTE | 2018-07-22 20:47 | ED.ADGEN ---
Past History Past Medical History: Diabetes Alcohol Use: None Drug Use: None Adult General Chief Complaint Chief Complaint ".. I missed a stair step.. and fell on this Lt. knee.. I ve been limping around on it.. but it gotten really sore tonight..." HPI HPI Patient is a 72 year old FEMALE who presents with above hx and complaints of lesions to left knee Knee after slipping on one step. Patient is able to do straight leg lift. Does localize pain to the patella area. There is some obvious edema as compared to right knee. Distal neurovascular intact. Patient has been walking with a limp for most the day but tonight the pain had increased and she could not sleep. Patient denies any other injury with the fall. Review of Systems Review of Systems Constitutional: Denies fever or chills [] Eyes: Denies change in visual acuity, redness, or eye pain [] HENT: Denies nasal congestion or sore throat [] Respiratory: Denies cough or shortness of breath [] Cardiovascular: No additional information not addressed in HPI [] GI: Denies abdominal pain, nausea, vomiting, bloody stools or diarrhea [] : Denies dysuria or hematuria [] Musculoskeletal: Denies back pain or joint pain []except complaints and left knee pain Integument: Denies rash or skin lesions [] Neurologic: Denies headache, focal weakness or sensory changes [] Endocrine: Denies polyuria or polydipsia [] All other systems were reviewed and found to be within normal limits, except as documented in this note. Family History Family History Noncontributory Current Medications Current Medications Current Medications Medications (Trade) Dose Ordered Sig/Isis Start Time Stop Time Status Last Admin Dose Admin Acetaminophen (Tylenol) 1,000 mg 1X ONCE 07/22/18 22:15 07/22/18 22:16 DC 07/22/18 22:08 1,000 MG Oxycodone/ Acetaminophen (Percocet 5/325) 1 tab 1X ONCE 07/22/18 21:45 07/22/18 21:46 DC 07/22/18 21:32 1 TAB See nursing for home meds Allergies Allergies Allergies Coded Allergies Type Severity Reaction Last Updated Verified codeine Allergy Unknown 12/23/17 Yes morphine Allergy Unknown 12/23/17 Yes Physical Exam Physical Exam Constitutional:, Moderately acute distress, non-toxic appearance. [] HENT: Normocephalic, atraumatic, bilateral external ears normal, oropharynx moist, no oral exudates, nose normal. [] Eyes: PERRLA, EOMI, conjunctiva normal, no discharge. [] Neck: Normal range of motion, no tenderness, supple, no stridor. [] Cardiovascular:Heart rate regular rhythm, no murmur [] Lungs & Thorax: Bilateral breath sounds clear to auscultation [] Abdomen: Bowel sounds normal, soft, no tenderness, no masses, no pulsatile masses. [] Skin: Warm, dry, no erythema, no rash. [] Back: No tenderness, no CVA tenderness. [] Extremities: Left knee tenderness, no cyanosis, no clubbing, ROM intact, left knee edema. [] Left knee exam as per history of present illness Neurologic: Alert and oriented X 3, normal motor function, normal sensory function, no focal deficits noted. [] Psychologic: Affect normal, judgement normal, mood normal. [] Current Patient Data Vital Signs Vital Signs Date Time Temp Pulse Resp B/P (MAP) Pulse Ox O2 Delivery O2 Flow Rate FiO2 07/22/18 22:00 81 16 126/66 (86) 97 Room Air 07/22/18 20:50 97.1 EKG EKG [] Radiology/Procedures Radiology/Procedures My interpretation of left knee film shows no obvious fracture dislocation. There is some mild arthritic changes. See formal report when available.[] Course & Med Decision Making Course & Med Decision Making Pertinent Labs and Imaging studies reviewed. (See chart for details) Patient apply ice packs to knee. Patient to keep leg elevated. Patient wear Jourdan wrap. Patient use crutches. Patient follow-up with primary care and orthopedics. Patient return if any concerns. [] Final Impression Final Impression 1. Lt knee contusion 2. Sprain/ Strain Lt knee[] Dragon Disclaimer Dragon Disclaimer This electronic medical record was generated, in whole or in part, using a voice recognition dictation system. ANUSHA YIN MD Jul 22, 2018 20:47
[2018-07-22] MEDS ORDERED: OXYC1TAB15 PO (21:26)
[2018-07-22] MEDS ORDERED: oxyCODONE/APAP 5/325 1 TAB TABLET PO ONE (21:45)
[2018-07-22 22:00] VITALS: BP 126/66
--- NOTE | 2018-07-22 22:01 | RAD ---
KNEE LEFT 4V History: Injury from fall, anterior left knee pain Comparison: None. Findings: 4 views of the left knee are submitted. No acute fracture or dislocation is identified. Impression: 1. No acute fracture is identified. Electronically signed by: Greg Lopez MD (07/22/2018 9:57 PM) [facility]
[2018-07-22] MEDS ORDERED: ACETAMINOPHEN 500 MG TABLET PO ONE (22:15)
== END 2018-07-22 22:11 | disposition home or self-care (01) ==
LOC: ER 21:36
DX: S80.02XA Contusion of left knee, initial encounter (principal); E11.9 Type 2 diabetes mellitus without complications; Z88.5 Allergy status to narcotic agent; W01.0XXA Fall on same level from slipping, tripping and stumbling without subsequent striking against object, initial encounter; Y93.89 Activity, other specified; Y92.89 Other specified places as the place of occurrence of the external cause; Y99.8 Other external cause status
CPT/HCPCS: 73564; 99283

== ENCOUNTER → 2018-11-10 | Outpatient (CLI) | payer MEDICARE, OTHER ==
[~2018-11-10] MED LIST changes: +OXYC1TAB15 PO
--- NOTE | 2018-11-10 12:42 | RAD ---
DATE: 11/10/2018 EXAM: DIGITAL DIAGNOSTIC RT, BREAST RIGHT HISTORY: Right breast lump COMPARISON: 02/23/2018 This study was interpreted with the benefit of Computerized Aided Detection (CAD). Breast Density: HETERO The breast parenchyma is heterogenously dense, which could reduce sensitivity of mammography. Breast parenchyma level C. FINDINGS: 2-D and 3-D tomosynthesis imaging was performed in CC and MLO projections. A BB was placed on the skin surface superiorly in the area of reported palpable concern. No new or enlarging breast densities are seen. No suspicious microcalcifications are evident. Right breast ultrasound, 11/10/2018: A targeted ultrasound exam of the superior aspect of the right breast was performed including the area of reported palpable concern. Normal heterogeneous fibroglandular shadows are present. No mass or abnormal fluid collection is seen. IMPRESSION: 1. Stable right mammograms without evidence of malignancy. 2. The targeted ultrasound exam of the superior aspect of the right breast reveals no abnormality. 3. Clinical and mammographic surveillance is suggested. BI-RADS CATEGORY: 1 NEGATIVE RECOMMENDED FOLLOW-UP: CLIN FOLLOW UP IMAGING CLINICALLY INDICATED PQRS compliance statement: Patient information was entered into a reminder system with a target due date for the next mammogram. Mammography is a sensitive method for finding small breast cancers, but it does not detect them all and is not a substitute for careful clinical examination. A negative mammogram does not negate a clinically suspicious finding and should not result in delay in biopsying a clinically suspicious abnormality. "Our facility is accredited by the [employer] Mammography Program."
== END | disposition home or self-care (01) ==
LOC: US 11:09
PROVIDERS: ATTEND Registered Nurse
DX: N63.10 Unspecified lump in the right breast, unspecified quadrant (principal)
CPT/HCPCS: 76641; 77065

== ENCOUNTER 2019-07-08 07:02 | Emergency (ER) | payer MEDICARE, OTHER ==
[~2019-07-08] VITALS: Ht 149.9 cm; Wt 59.0 kg
[~2019-07-08 07:02] MED LIST changes: +METF500T11 PO; -METF500T9 PO; +OMEP-229 PO; -OMEP20CA9 PO
[2019-07-08 07:16] VITALS: BP 212/108
--- NOTE | 2019-07-08 07:23 | PHYS DOC ---
Past History Past Medical History: Diabetes, Hypertension Past Surgical History: , Other Smoking: Non-smoker Alcohol Use: None Drug Use: None Adult General Chief Complaint Chief Complaint: HIP PAIN HPI HPI Patient is a 73-year-old female presents with increasing left hip and thigh pain after a fall off of a couch approximately 2 weeks ago. She was seen by her primary care physician and given an unknown pain medicine which is not improving the pain. She is able to ambulate but more slowly than usual since the fall. There was no head injury. No loss of consciousness. Some bruising was noted on the posterior aspect of her hip by family. Pain is moderate in intensity. Increased pain with movement. No loss of bowel or bladder control. Patient is not on any blood thinners.[] Review of Systems Review of Systems Constitutional: Denies fever or chills [] Eyes: Denies change in visual acuity, redness, or eye pain [] HENT: Denies nasal congestion or sore throat [] Respiratory: Denies cough or shortness of breath [] Cardiovascular: No chest pain or palpitations[] GI: Denies abdominal pain, nausea, vomiting, bloody stools or diarrhea [] : Denies dysuria or hematuria [] Musculoskeletal: See history of present illness[] Integument: Denies rash or skin lesions [] Neurologic: Denies headache, focal weakness or sensory changes [] Endocrine: Denies polyuria or polydipsia [] All other systems were reviewed and found to be within normal limits, except as documented in this note. Allergies Allergies Allergies Coded Allergies Type Severity Reaction Last Updated Verified codeine Allergy Unknown 12/23/17 Yes morphine Allergy Unknown 12/23/17 Yes Physical Exam Physical Exam Constitutional: Well developed, well nourished, no acute distress, non-toxic appearance. [] HENT: Normocephalic, atraumatic, bilateral external ears normal, oropharynx moist, no oral exudates, nose normal. [] Eyes: PERRLA, EOMI, conjunctiva normal, no discharge. [] Neck: Normal range of motion, no tenderness, supple, no stridor. [] Cardiovascular:Heart rate regular rhythm, no murmur [] Lungs & Thorax: Bilateral breath sounds clear to auscultation [] Abdomen: Bowel sounds normal, soft, no tenderness, no masses, no pulsatile mass es. Pelvis is stable in 3 planes[] Skin: Warm, dry, no erythema, no rash. [] Back: No tenderness, no CVA tenderness. [] Extremities: There is tenderness diffusely around the left hip. Decreased active range of motion to approximately 45, compared with the right hip which has full active range of motion. There is no rotational deformity noted. Full active range of motion of the knee without any laxity. She is distally neurovascularly intact in the left lower extremity. The other 3 extremities show: No tenderness, no cyanosis, no clubbing, ROM intact, no edema. [] Neurologic: Alert and oriented X 3, normal motor function, normal sensory function, no focal deficits noted. [] Psychologic: Affect normal, judgement normal, mood normal. [] EKG EKG [] Radiology/Procedures Radiology/Procedures PROCEDURE: HIP LEFT 2V WITH PELVIS Left hip 2 views with one view pelvis, left femur AP and lateral views. IMPRESSION: 1. Fall with left hip and femur. Single view was taken of the pelvis. There is no pelvic fracture or acute osseous abnormality. There is a calcified uterine leiomyoma. AP and lateral views were taken of the left hip. There is no fracture or acute osseous abnormality. AP and lateral views were taken of the left femur. There is no acute fracture. There is calcification at the medial condyle the distal femur possibly an old injury. There is no acute femur fracture or other acute osseous abnormality IMPRESSION: 1. No pelvic fracture noted. 2. No left hip fracture noted. 3. No femur fracture[] Course & Med Decision Making Course & Med Decision Making Pertinent Labs and Imaging studies reviewed. (See chart for details) ED course: Patient arrived, was placed in bed, and tolerated exam well. She was given pain medicine, she was transported to and from radiology with any complications. After return the imaging findings, these were discussed with the patient who voiced understanding. All questions were answered. She was discharged in improved condition. Medical decision making: There is no evidence of a fracture or dislocation. No evidence of neurologic compromise. No evidence of vascular compromise.[] Dragon Disclaimer Dragon Disclaimer This electronic medical record was generated, in whole or in part, using a voice recognition dictation system. Departure Departure: Impression: Primary Impression: Contusion of left hip Disposition: HOME, SELF-CARE Condition: IMPROVED Referrals: JACE VILLAGOMEZ MD (PCP) Follow up in 2 days Patient Instructions: Contusion Additional Instructions: Follow-up with your regular doctor in 2 days. Return to the ER if worsening pain, loss of bowel or bladder control, or any other concerns. Scripts Orphenadrine Citrate (ORPHENADRINE CITRATE) 100 Mg Tablet.er 100 MG PO BID for back/hip pain, #20 TAB.SR Prov: MILLICENT CANO DO 07/08/19 Meloxicam (MELOXICAM) 7.5 Mg Tablet 7.5 MG PO DAILY for PAIN, #20 TAB Prov: MILLICENT CANO DO 07/08/19 Problem Qualifiers Primary Impression: Contusion of left hip Encounter type: initial encounter Qualified Codes: S70.02XA - Contusion of left hip, initial encounter MILLICENT CANO DO Jul 08, 2019 07:23
[2019-07-08] MEDS ORDERED: IBUPROFEN 400 MG TABLET. PO ONE (07:30)
--- NOTE | 2019-07-08 07:43 | RAD ---
Left hip 2 views with one view pelvis, left femur AP and lateral views. IMPRESSION: 1. Fall with left hip and femur. Single view was taken of the pelvis. There is no pelvic fracture or acute osseous abnormality. There is a calcified uterine leiomyoma. AP and lateral views were taken of the left hip. There is no fracture or acute osseous abnormality. AP and lateral views were taken of the left femur. There is no acute fracture. There is calcification at the medial condyle the distal femur possibly an old injury. There is no acute femur fracture or other acute osseous abnormality IMPRESSION: 1. No pelvic fracture noted. 2. No left hip fracture noted. 3. No femur fracture Electronically signed by: Eddi Durant MD (07/08/2019 7:40 AM) [id number]
[2019-07-08] MEDS ORDERED: ORPH-16 PO (07:55)
[2019-07-08] MEDS ORDERED: MELO7.5T29 PO (07:55)
== END 2019-07-08 08:00 | disposition home or self-care (01) ==
LOC: ER 07:02
DX: S70.02XA Contusion of left hip, initial encounter (principal); M79.652 Pain in left thigh; E11.9 Type 2 diabetes mellitus without complications; I10 Essential (primary) hypertension; Z88.5 Allergy status to narcotic agent; W08.XXXA Fall from other furniture, initial encounter; Y93.89 Activity, other specified; Y92.89 Other specified places as the place of occurrence of the external cause; Y99.8 Other external cause status
CPT/HCPCS: 73502; 73552; 99284

== ENCOUNTER → 2019-08-20 | Outpatient (CLI) | payer MEDICARE, OTHER ==
[~2019-08-20] MED LIST changes: +MELO7.5T29 PO; -OMEP-229 PO; +OMEP20CA16 PO; +ORPH-16 PO
--- NOTE | 2019-08-20 09:55 | RAD ---
HIP LEFT 2 VIEW, KNEE LEFT 3V History: Pain after a fall . 3 view left knee Curvilinear density adjacent to the upper aspect of the medial femoral condyle, best seen on the AP image. Margins appear fairly well-defined. Suspicious for a small avulsion fracture of indeterminate age, versus some chronic dystrophic ossification or calcification. No definite acute fracture is seen. No aggressive bone destruction. Joint spaces are intact. Probable joint effusion. IMPRESSION: 1. Curvilinear density adjacent to the medial femoral condyle, suspicious for an avulsion fracture of indeterminate age. No other fracture is seen. 2. Suprapatellar joint effusion. Two-view left hip No evidence of acute fracture. No aggressive bone destruction. Joint space intact. Dense pelvic calcifications most likely uterine fibroid. IMPRESSION: No evidence of acute fracture or dislocation. If clinical symptoms persist, consider further evaluation with outpatient elective MRI exam. Electronically signed by: Rodney Steen MD (08/20/2019 9:52 AM) [facility]
== END | disposition home or self-care (01) ==
LOC: DXRAD 08:53
PROVIDERS: ATTEND Family Medicine
DX: M25.462 Effusion, left knee (principal); M25.852 Other specified joint disorders, left hip
CPT/HCPCS: 73502; 73562

== ENCOUNTER → 2020-05-09 | Outpatient (CLI) | payer MEDICARE, OTHER ==
[~2020-05-09] MED LIST changes: +METF-658 PO; -METF500T11 PO
--- NOTE | 2020-05-09 12:25 | RAD ---
MR#: [id number] Date of Study: 05/09/2020 Ordering Physician: MADYSON JIMENES, Referring Physician: MADYSON JIMENES, Tech: Veronica Simmons RVT,LUAN APPROVED REPORT Patient Location : OUT-PATIENT Indications Lower Extremity Pain : Limited grayscale images of the bilateral saphenofemoral junctions are grossly unremarkable. The right great saphenous vein measures 6 mm and has no significant reflux. The left great saphenous vein measures 6 mm and also has no significant reflux. Bilateral lesser saphenous veins did not reveal any evidence of reflux. Critical Notification Critical Value: No <Conclusion> 1. Negative for reflux in the bilateral greater and lesser saphenous veins Signed by : Robinson Nava, Electronically Approved : 05/09/2020 12:24:38
== END | disposition home or self-care (01) ==
LOC: US 10:10
PROVIDERS: ATTEND Internal Medicine Cardiovascular Disease
DX: M79.604 Pain in right leg (principal); M79.605 Pain in left leg
CPT/HCPCS: 93970

== ENCOUNTER → 2021-05-03 | Outpatient (CLI) | payer MEDICARE, OTHER ==
--- NOTE | 2021-05-03 17:36 | RAD ---
Limited sonography of the left leg Clinical indications: Palpable lump. FINDINGS: High-resolution sonography of the area of clinical concern of the anterior aspect of the le ft lower leg just below the knee was performed. There is a tiny subcutaneous hypoechoic nodule withou t sound through transmission measuring 3.3 mm x 1.5 mm x 2.2 mm in size. No color Doppler flow is see n within it. This does not extend into the cutis. IMPRESSION: Small solid hypoechoic nodule. Recommend continued clinical follow-up with regard to any growth in size. Electronically signed by: Sandeep Fernandes MD (05/03/2021 5:34 PM) [id number]
== END ==
LOC: RAD 14:54
PROVIDERS: ATTEND Family Medicine
DX: L72.9 Follicular cyst of the skin and subcutaneous tissue, unspecified (principal)
CPT/HCPCS: 76882